=== PATIENT | male | born 1960 | race Caucasian/White ===

== ENCOUNTER → 2016-10-22 | Outpatient (CLI) | payer BC ==
[~2016-10-22] MED LIST: CALC-440 PO; CALC0.5C PO; CHOLTAB3 PO; LEVO125T5 PO; MAGN400T6 PO; ONDA4TAB46 SL; VERA120C2 PO; VRPSR240 PO
--- NOTE | 2016-10-22 12:52 | DIAGNOSTIC IMAGING REPORT ---
CHEST 2 VIEWS ROUTINE CLINICAL HISTORY: Cough. Chronic kidney disease. COMPARISON STUDY: Chest radiograph February 25, 2016. FINDINGS: Lung volumes are normal. There is no pneumothorax or pleural effusion. Pulmonary vascularity is normal. No consolidation to suggest pneumonia is identified. Cardiac size is within normal limits. Mild patient rotation is noted. The appearance of the chest is unchanged. IMPRESSION: No acute cardiopulmonary findings. Electronically signed by: Siva Sotelo M.D. 10/22/2016 12:51 PM Dictated Date/Time: 10/22/2016 12:50 PM
== END | disposition home or self-care (01) ==
LOC: C.RADBC 12:21
PROVIDERS: ATTEND Physician Assistant Medical
DX: N18.3 Chronic kidney disease, stage 3 (moderate) (principal); R05 Cough

== ENCOUNTER 2020-08-21 06:30 | Observation (INO) ==
--- NOTE | 2020-08-15 09:33 | PAT Medication Instructions ---
Medication Instructions Date of Service August 15, 2020 Home Medications Medication Instructions Recorded sumatriptan succinate 50 mg tablet 50 mg PO .COMPLEX PRN #18 tab 08/18/19 hydrocodone 5 mg-acetaminophen 325 1 tab PO Q6H PRN #10 tab 08/21/19 mg tablet calcium carb,cit ER 600 mg-vit D3 2 tab PO QAM #180 tab 10/23/19 12.5 mcg (500 unit) tablet,ext.rel calcium citrate 315 mg See Rx Instructions PO QPM #90 tab 10/23/19 calcium-vitamin D3 6.25 mcg (250 unit) tablet calcitriol 0.25 mcg capsule See Rx Instructions PO .COMPLEX 06/17/20 #220 cap sumatriptan succinate 50 mg tablet 50 mg PO .COMPLEX PRN hydrocodone 5 mg-acetaminophen 325 mg tablet 1 tab PO Q6H PRN calcium carb,cit ER 600 mg-vit D3 12.5 mcg (500 unit) tablet,ext.rel 2 tab PO QAM calcium citrate 315 mg calcium-vitamin D3 6.25 mcg (250 unit) tablet See Rx I nstructions PO QPM calcitriol 0.25 mcg capsule See Rx Instructions PO .COMPLEX amlodipine 10 mg PO QAM doxazosin 1 mg PO QPM hydroxyzine HCl 25 mg PO QID PRN levothyroxine 125 mcg PO QAM multivitamin 1 tab PO QAM DO NOT take the morning of surgery calcium carb,cit ER 600 mg-vit D3 12.5 mcg (500 unit) tablet,ext.rel 2 tab PO QAM calcitriol 0.25 mcg capsule See Rx Instructions PO .COMPLEX hydroxyzine HCl 25 mg PO QID PRN multivitamin 1 tab PO QAM Take morning of surgery With a small sip of water, OTHERWISE NOTHING TO EAT OR DRINK AFTER MIDNIGHT: sumatriptan succinate 50 mg tablet 50 mg PO .COMPLEX PRN (if needed) hydrocodone 5 mg-acetaminophen 325 mg tablet 1 tab PO Q6H PRN (okay to take up to 4 hours prior to surgery if needed) amlodipine 10 mg PO QAM levothyroxine 125 mcg PO QAM Take evening before surgery sumatriptan succinate 50 mg tablet 50 mg PO .COMPLEX PRN (if needed) hydrocodone 5 mg-acetaminophen 325 mg tablet 1 tab PO Q6H PRN (if needed) calcium citrate 315 mg calcium-vitamin D3 6.25 mcg (250 unit) tablet See Rx Instructions PO QPM doxazosin 1 mg PO QPM hydroxyzine HCl 25 mg PO QID PRN (if needed) Other Notes If you have any questions please call us at [phone] or [phone] or [phone] or [phone]
--- NOTE | 2020-08-16 12:24 | Anesthesiology Consultation ---
Date of Service August 16, 2020 Assessment & Plan (1) Encounter for pre-operative examination: COVID Status: As of 08/16 assessment, patient denies travel to endemic area, known exposure/sick contacts, or symptoms of COVID19. Patient instructed that they and their household members must follow strict social distancing guidelines, wear a mask in public and avoid travel/events/gatherings for 14 days prior to surgery. Preoperative COVID19 testing completed 08/15. Patient made aware to self-isolate as much as possible between COVID testing and surgery. PCP Clearance 08/14/20: "No major issues at this time. Physical examination was unremarkable. Patient to have routine preoperative testing done on 08/16/2020. Scheduled to have COVID screen done. Based on physical examination the patient is within acceptable medical risk for his procedure schedule on 08/21/2020." Chart Review Chart Review: Acceptable Risk for Surgery and Patient seen in Pre Admission Testing Teaching & Discussion Instructed NPO after midnight before surgery, except medications with 15 cc of water. Medication instructions provided according to the PAT guidelines. History Surgery Operation Date: 08/21/20 09:05 Proposed Procedures p Right Total Knee Arthroplasty - Curtis Watkins MD Height/Weight Height: 5 ft 11 in Weight: 92.986 kg Allergies Allergy/AdvReac Type Severity Reaction Status Date / Time naproxen AdvReac Mild GI UPSET Verified 08/14/20 14:00 NSAIDS (Non-Steroidal AdvReac CONTRAINDIC Verified 08/14/20 14:00 Anti-Inflamma ATED Medications Home Medications Medication Instructions Recorded Confirmed Last Taken sumatriptan succinate 50 mg tablet 50 mg PO .COMPLEX PRN #18 tab 08/18/19 08/14/20 Unknown hydrocodone 5 mg-acetaminophen 325 1 tab PO Q6H PRN #10 tab 08/21/19 08/14/20 Unknown mg tablet calcium carb,cit ER 600 mg-vit D3 2 tab PO QAM #180 tab 10/23/19 08/14/20 Unknown 12.5 mcg (500 unit) tablet,ext.rel calcium citrate 315 mg See Rx Instructions PO QPM #90 tab 10/23/19 08/14/20 Unknown calcium-vitamin D3 6.25 mcg (250 unit) tablet calcitriol 0.25 mcg capsule See Rx Instructions PO .COMPLEX 06/17/20 08/14/20 Unknown #220 cap amlodipine 10 mg PO QAM 08/14/20 08/14/20 Unknown doxazosin 1 mg PO QPM 08/14/20 08/14/20 Unknown hydroxyzine HCl 25 mg PO QID PRN 08/14/20 08/14/20 Unknown levothyroxine 125 mcg PO QAM 08/14/20 08/14/20 Unknown multivitamin 1 tab PO QAM 08/14/20 08/14/20 Unknown Past Medical History Medical History Acute kidney injury 2013, r/t medication, Dr. Caban Anxiety Cancer medullary thyroid cancer Chronic kidney disease, stage III (moderate) History of radiation therapy Hypertension Hypothyroidism Migraine Osteoarthritis Exercise / Class Metabolic Activity II 4-5 Yardwork/Stairs/Walk up hill Past Family History Family History Father Cancer Prostate cancer Stroke syndrome Mother Hypertension Brother Hypertension Denies family history of Ovarian cancer Myocardial infarction Breast cancer Colorectal cancer Past Surgical History Surgical History History of arthroscopy bilateral knee scopes History of colonoscopy History of detached retina repair multiple surgeries bilaterally History of esophagogastroduodenoscopy (EGD) History of tooth extraction S/P knee surgery S/P parathyroidectomy S/P thyroidectomy S/P wisdom tooth extraction Past Anesthesia History No Hx of Anesthesia Complications and No Family Hx of Anesthesia Complications History of PONV No Hx of PONV and No Hx of Motion Sickness Social History Smoking Status: Never smoker Do You Dip or Chew Tobacco: No Hx Alcohol Use: Yes Alcohol type: beer alcohol intake frequency: a few times a week Hx Substance Use: No substance use type: does not use Review of Systems Pt denies any recent chest pain, shortness of breath, palpitations, cough, fever, URI, or uncontrolled acid reflux. Physical Exam Vital Signs BP: 147/94 (pt is visibly anxious) P: 71bpm SPO2: 97% RA T: 97.9 F R: 16 ENMT Mouth: no dental restorations and no loose teeth Thyromental Distance: > or= 3.5 Finger Breadths Mallampati Class: I Neck + facial hair (medium length oshea); neck extension not limited Respiratory normal respiratory effort, lungs clear to auscultation Testing Laboratory Results 08/16/20 12:38 08/16/20 12:38 PT 10.2 Seconds (9.0-12.0) 08/16/20 12:38 INR 1.0 (0.9-1.1) 08/16/20 12:38 APTT 26.2 Seconds (21.0-31.0) 08/16/20 12:38 Urine Color Yellow 08/16/20 12:38 Urine Appearance Clear (Clear) 08/16/20 12:38 Urine pH 6.5 (4.5-7.5) 08/16/20 12:38 Ur Specific [place] 1.015 (1.000-1.030) 08/16/20 12:38 Urine Protein Trace (Negative) H 08/16/20 12:38 Urine Glucose (UA) Negative (Negative) 08/16/20 12:38 Urine Ketones Negative (Negative) 08/16/20 12:38 Urine Nitrite Negative (Negative) 08/16/20 12:38 Ur Leukocyte Esterase Negative (Negative) 08/16/20 12:38 Urine WBC (Auto) 1-5 /hpf (0-5) 08/16/20 12:38 Urine RBC (Auto) 0-4 /hpf (0-4) 08/16/20 12:38 U Hyaline Cast (Auto) 1-5 /lpf (0-5) 08/16/20 12:38 U Epithel Cells (Auto) 0-5 /lpf (0-5) 08/16/20 12:38 Urine Bacteria (Auto) Negative (Negative) 08/16/20 12:38 Blood Type A Positive 08/16/20 12:38 Antibody Screen NEGATIVE 08/16/20 12:38 Creatinine c/w known stage III CKD. Electrocardiogram Date: 08/16/20 Findings: + NSR @ (72bpm) and + RBBB RBBB is new compared to 2015 EKG. Chest X-Ray Date: 08/16/20 Findings: + NAD
[2020-08-16 13:17] LABS: Basophils # (auto) 0.04 K/uL (0-0.2); Basophils % (auto) 0.5 %; Eosinophils # (auto) 0.16 K/uL (0-0.5); Hematocrit (blood only) 47.8 % (42-52); Hemoglobin 16.5 g/dL (14.0-18.0); Immature Granulocytes # (auto) 0.01 K/uL (0.00-0.02); Immature Granulocytes % (auto) 0.1 %; Lymphocytes % (auto) 15.9 %; Mean Corpuscular Hgb Conc 34.5 g/dL (32-36); Mean Corpuscular Volume 86.9 fL (80-100); Mean Platelet Volume 9.4 fL (7.4-10.4); Monocytes % (auto) 9.8 %; Neutrophils # (auto) 5.85 K/uL (1.4-6.5); Neutrophils % (auto) 71.7 %; Platelet Count 264 K/uL (130-400); RDW Coefficient of Variation 13.4 % (11.5-14.5); RDW Standard Deviation 42.8 fL (36.4-46.3); White Blood Count 8.16 K/uL (4.8-10.8)
--- NOTE | 2020-08-16 13:20 | XRay Report ---
XR chest Pre-admission PA/Lat HISTORY: 60 years-old Male pat preoperative exam. No acute chest complaints COMPARISON: Chest radiographs 10/22/2016 TECHNIQUE: PA and lateral views of the chest FINDINGS: Cardiomediastinal and hilar silhouettes are within normal limits. No pneumothorax, pleural effusion, airspace consolidation or overt pulmonary edema. Degenerative changes of the shoulders and spine. IMPRESSION: No acute process. ACT 112: Negative or not required by law. The above report was generated using voice recognition software. It may contain grammatical, syntax o r spelling errors. Electronically signed by: Vin Anand M.D. 08/16/2020 1:18 PM
[2020-08-16 13:22] LABS: Appearance Urine Clear (Clear); Bacteria Urine Automated Negative (Negative); Bilirubin Urine Negative (Negative); Blood Urine Negative (Negative); Color Urine Yellow; Epithelial Cell Urine Auto 0-5 /lpf (0-5); Glucose Urine UA Negative (Negative); Ketones Urine Negative (Negative); Leukocyte Esterase Urine Negative (Negative); Nitrite Urine Negative (Negative); Protein Urine Trace (Negative); RBC Urine Automated 0-4 /hpf (0-4); Specific Gravity Urine 1.015 (1.000-1.030); Urobilinogen Urine Negative (Negative); pH Urine 6.5 (4.5-7.5)
[2020-08-16 13:51] LABS: Partial Thromboplastin Time 26.2 Seconds (21.0-31.0); Prothrombin Time 10.2 Seconds (9.0-12.0)
[2020-08-16 14:39] LABS: BUN Creatinine Ratio 14.7 (10-20); Calcium 8.9 mg/dl (8.5-10.1); Creatinine Clr Calc Pharmacy 54.5 ml/min; Est GFR (Non-African American) 43.2; Potassium 3.6 mmol/L (3.5-5.1)
--- NOTE | 2020-08-16 16:07 | Electrocardiogram Report ---
Test Reason : Blood Pressure : / mmHG Vent. Rate : 072 BPM Atrial Rate : 072 BPM P-R Int : 144 ms QRS Dur : 160 ms QT Int : 454 ms P-R-T Axes : 074 078 062 degrees QTc Int : 497 ms Normal sinus rhythm Right bundle branch block Abnormal ECG When compared with ECG of 18-DEC-2014 07:28, Right bundle branch block is now Present Confirmed by Ben Varela ([id number]) on 08/16/2020 4:06:43 PM Referred By: Curtis Watkins Confirmed By:Ed Varela
--- NOTE | 2020-08-19 07:38 | History & Physical Report ---
Date of Service August 19, 2020 Assessment & Plan (1) Right knee DJD: Postoperative prescriptions for Percocet and Coumadin will be provided at discharge from the hospital. Anticipate discharge to home with home health services. Preoperative lab work, EKG, and chest x-ray were ordered today through PAT. He has already seen his PCP for medical clearance. Prescription was provided for a rolling walker. The patient has already done his COVID-19 nasal swab. He is currently asymptomatic of any COVID-19 symptoms. He is aware of the COVID-19 risks associated with surgery. PDMP was checked today, and there are no concerning findings. Last [place] fill was 1 year ago. History of Present Illness Chief Complaint: Right knee pain Primary Care Provider: Mark Melton, This 60-year-old male presents today for right knee pain that he has had for approximately 5 years. He is scheduled to undergo a right knee total knee arthroplasty on 08/21/2020. Pain has become worse with time. He did try viscosupplementation injections, corticosteroid injections, oral pain medication, and activity modification without improvement. He is unable to take NSAIDs due to renal insufficiency. Pain is worse with weightbearing. It is affecting his ADLs. He denies any numbness or tingling, occasional knee effusions, frequent night pain. Preoperative imaging has been obtained. He elects to proceed with surgical intervention in hopes of improving his function and pain control. Allergies Allergy/AdvReac Type Severity Reaction Status Date / Time naproxen AdvReac Mild GI UPSET Verified 08/14/20 14:00 NSAIDS (Non-Steroidal AdvReac CONTRAINDIC Verified 08/14/20 14:00 Anti-Inflamma ATED Home Medications Medication Instructions Recorded Confirmed Type sumatriptan succinate 50 mg tablet 50 mg PO .COMPLEX PRN #18 tab 08/18/19 08/14/20 Rx hydrocodone 5 mg-acetaminophen 325 1 tab PO Q6H PRN #10 tab 08/21/19 08/14/20 Rx mg tablet calcium carb,cit ER 600 mg-vit D3 2 tab PO QAM #180 tab 10/23/19 08/14/20 Rx 12.5 mcg (500 unit) tablet,ext.rel calcium citrate 315 mg See Rx Instructions PO QPM #90 tab 10/23/19 08/14/20 Rx calcium-vitamin D3 6.25 mcg (250 unit) tablet calcitriol 0.25 mcg capsule See Rx Instructions PO .COMPLEX 06/17/20 08/14/20 Rx #220 cap amlodipine 10 mg PO QAM 08/14/20 08/14/20 History doxazosin 1 mg PO QPM 08/14/20 08/14/20 History hydroxyzine HCl 25 mg PO QID PRN 08/14/20 08/14/20 History levothyroxine 125 mcg PO QAM 08/14/20 08/14/20 History multivitamin 1 tab PO QAM 08/14/20 08/14/20 History Past Med/Surg History Medical History (Updated 08/19/20 @ 07:37 by Melecio Whitley PA-C) Acute kidney injury 2013, r/t medication, Dr. Caban Anxiety Cancer medullary thyroid cancer Chronic kidney disease, stage III (moderate) History of radiation therapy Hypertension Hypothyroidism Migraine Osteoarthritis Surgical History History of arthroscopy bilateral knee scopes History of colonoscopy History of detached retina repair multiple surgeries bilaterally History of esophagogastroduodenoscopy (EGD) History of tooth extraction S/P knee surgery S/P parathyroidectomy S/P thyroidectomy S/P wisdom tooth extraction Family History Father Cancer Prostate cancer Stroke syndrome Mother Hypertension Brother Hypertension Denies family history of Ovarian cancer Myocardial infarction Breast cancer Colorectal cancer Social History Smoking Status: Never smoker Second Hand Exposure: No; Hx Alcohol Use: Yes Alcohol type: beer Hx Substance Use: No Preferred Language: Micronesian Visual Impairment: No Limitations Hearing Ability: Normal Beef Breaker Required: No Beliefs That Will Affect Care: None marital status: Current Living Situation: Family current occupational status: employed current occupation: perfessor [employer] Feels Safe at Home: Yes Childhood Exposure to Second-Hand Smoke: Yes Dental Care, Regularly: Yes Physical Activity Frequency: 3-4 Times per Week Seatbelt Use: always Sunscreen Use: No Assistive Devices: None Review of Systems Review of Systems: All systems reviewed & are unremarkable except as noted in HPI & below A total of 10 systems were reviewed. Physical Exam Physical Exam: Vitals: Height 180.5 cm, weight 92.9 kilograms, BMI 28.5, temp erature 36.6, BP 140/82, pulse 99, O2 sat 98% on room air. General: Well-developed, well-nourished middle-aged white male in no acute distress. Sitting in a chair. Alert and oriented. Skin: Warm and dry with good turgor. No rashes or lesions. No ecchymosis or erythema. No intraarticular effusion. HEENT: Normocephalic, atraumatic. Eyes: PERRLA, EOMI. Nares patent bilaterally without turbinate enlargement. Oropharynx exam deferred due to COVID precautions. Heart: RRR, no MGR. Lungs: Clear to auscultation bilaterally, no crackles, rhonchi or wheezing, good air movement. Abdomen: Bowel sounds present x4, soft, nontender. No organomegaly. No masses. Musculoskeletal: Right knee evaluation reveals no intraarticular effusion. He has nearly full terminal extension. Lacks just a few degrees of lag. Flexion to just shy of 100 degrees. Strength is 5/5 with good quad tone. Stable collateral ligaments. He has focal discomfort with palpation over the medial joint line. No lateral joint line discomfort with palpation. Mild crepitation palpable with motion. No peripatellar discomfort. No defect in the patellar tendon or quadriceps tendon. Stable MCL and LCL stressing. Ambulates with a very mildly antalgic gait. Strength is 5/5 for resisted plantarflexion and dorsiflexion of the ankle. Neurologic: Gross sensation is intact across the right leg by soft touch. Peripheral pulses are 2+. Results & Data Results & Data ([facility]) Diagnostic Findings Radiographic imaging previously obtained shows medial joint space loss with periarticular osteophytes.
--- NOTE | 2020-08-21 06:22 | History & Physical Bridge Note ---
Date of Service August 21, 2020 History & Physical Bridge Note I have examined the patient, reviewed the History & Physical and in the interval since the performance of the History & Physical I have noted the following changes of clinical significance:consent obtained/site verified/covid screen negative. no changes noted
[~2020-08-21 06:30] MED LIST changes: -CALC-440 PO; -CALC0.5C PO; -CHOLTAB3 PO; -LEVO125T5 PO; +LR 500ML BOLUS, THEN 15ML/HR IV SCH; +LR 60ML/HR IV SCH; -MAGN400T6 PO; -ONDA4TAB46 SL; +ROPIVACAINE 0.5% HCL/PF 150 MG, BUPIVACAINE 0.75% MPF 20 ML, EPINEPHrine 0.15 MG, dexAM... INFIL SCH; +TRANEXAMIC ACID 1,000 MG **IV Pre-op IV SCH; -VERA120C2 PO; -VRPSR240 PO; +ceFAZolin 2000MG 2,000 MG/15 ML SYR IV SCH
[2020-08-21] MEDS ORDERED: ROPIVACAINE 0.5% 5 MG/ML 30 ML VIAL ONE (06:35)
[2020-08-21] MEDS ORDERED: BUPIVACAINE 0.5 % 5 MG/1 ML PF 10ML VIAL ONE (06:35)
[2020-08-21] MEDS ORDERED: MIDAZOLAM HCL 1 MG/ML 2ML VIAL ONE ×2 (07:35→07:36)
[2020-08-21] MEDS ORDERED: ONDANSETRON INJ 2 MG/ML 2 ML VIAL IV PRN ×2 (08:18→13:03)
[2020-08-21] MEDS ORDERED: ATROPINE SULFATE 0.1 MG/ML 10ML SYR IV PRN (08:18)
[2020-08-21] MEDS ORDERED: HYDROmorphone INJ 1 MG/ML SYRINGE IV PRN (08:18)
[2020-08-21] MEDS ORDERED: ePHEDrine sulfate 50 MG/ML AMP IV PRN (08:18)
[2020-08-21] MEDS ORDERED: ORTHO JOINT ANESTHETIC ONE (08:48)
[2020-08-21] MEDS ORDERED: PROPOFOL IV EMULSION 10 MG/ML 20 ML VIAL IV ONE ×2 (08:54→10:00)
[2020-08-21] MEDS ORDERED: LIDOCAINE HCL 2% 2 ML VIAL/AMP(20MG/ML) INFIL ONE (08:54)
--- NOTE | 2020-08-21 09:09 | Discharge Summary (DS) ---
DATE OF DISCHARGE: 08/22/2020. CHIEF COMPLAINT: Right knee pain. HISTORY OF PRESENT ILLNESS: The patient underwent elective right total knee replacement. At this point in time, patient with potential for discharge if he does well overnight. A 60-year-old male with intractable knee pain, has been treated for over 5 years. Continues to have significant discomfort. X-rays reveal progressive varus medial joint space narrowing. At this point in time, he is frustrated and feels like he cannot do his activities and wants to proceed with surgical treatment. He understood the risks and consequences. Medication reconciliation list is extensive, please see list. PAST MEDICAL HISTORY: Remarkable for acute kidney injury, anxiety, cancer, medullary thyroid cancer, chronic kidney disease stage III, history of radiation therapy, hypertension, hypothyroidism, migraine, osteoarthritis. PAST SURGICAL HISTORY: Remarkable for arthroscopy, colonoscopies, retinal surgery, EGDs, tooth extraction, multiple knee surgeries in the past. FAMILY HISTORY: Remarkable for cancer, prostate, strokes in the father. Hypertension in mother. Brother hypertension. Denies family history of ovarian, myocardial infarction, breast cancer, colorectal cancer. SOCIAL HISTORY: Reveals that he does not smoke. Social alcohol only. Lives with his family. He is a professor at [employer]. REVIEW OF SYSTEMS: Reveals no chest pain, shortness of breath, fever, chills, nausea, vomiting or headache. ASSESSMENT: Status post right total knee replacement. Hospital course continues if he continues to do well will be discharged on 08/23/2019. DVT prophylaxis per protocol.
[2020-08-21] MEDS ORDERED: fentaNYL citrate 100 MCG/2 ML VIAL ONE (09:22)
--- NOTE | 2020-08-21 10:27 | Post Operative Brief Note ---
Immediate Post Op Note v1 Date of Surgery August 21, 2020 Pre & Post Diagnosis Operation Date: 08/21/20 08:50 Pre-Op Diagnosis: Right Knee Degenerative Joint Disease Post-Op Diagnosis: Right Knee Degenerative Joint Disease I identified the patient and participated in the time-out.: Yes Procedure Operation Date: 08/21/20 08:50 Actual Procedures p Right Total Knee Arthroplasty(Right) - Curtis Watkins MD Surgeon Curtis Watkins MD Banana Room Cutter Anastasiia/Gutierrez Estimated Blood Loss 75 Findings Consistent with Post-Op Diagnosis
--- NOTE | 2020-08-21 10:41 | Operative Report ---
Post Operative Report Pre & Post Diagnosis Operation Date: 08/21/20 08:50 Pre-Op Diagnosis: Right Knee Degenerative Joint Disease Post-Op Diagnosis: Right Knee Degenerative Joint Disease I identified the patient and participated in the time-out.: Yes Procedure Operation Date: 08/21/20 08:50 Actual Procedures p Right Total Knee Arthroplasty(Right) - Curtis Watkins MD Surgeon Curtis Watkins MD Set Painter Anastasiia/Gutierrez Estimated Blood Loss 75 Findings Consistent with Post-Op Diagnosis Specimens bone cuts Anesthesia Type Spinal MAC Complications none Disposition Accompanied Patient To Recovery: Yes Disposition: Recovery Room Description of Procedure As per Dr. Watkins's note, I assisted in prepping and draping, instruments handling, certain parts of the procedure and wound closure. I attest to the content of the Intraoperative Record and any orders documented therein. Any exceptions are noted below.
--- NOTE | 2020-08-21 10:43 | Operative Report ---
Post Operative Report Pre & Post Diagnosis Operation Date: 08/21/20 08:50 Pre-Op Diagnosis: Right Knee Degenerative Joint Disease Post-Op Diagnosis: Right Knee Degenerative Joint Disease I identified the patient and participated in the time-out.: Yes Procedure Operation Date: 08/21/20 08:50 Actual Procedures p Right Total Knee Arthroplasty(Right) - Curtis Watkins MD Surgeon JOHN Watkins MD Color Blender Anastasiia/Gutierrez SMITH Estimated Blood Loss 75 Findings Consistent with Post-Op Diagnosis Specimens see operative report Drains none Complications none Disposition Accompanied Patient To Recovery: Yes Disposition: Recovery Room Indications This 60-year-old male presented to the office with complaints of persisting right knee pain. He had tried conservative care measures without improvement. He elected to proceed with surgical intervention after being educated about potential risks and outcomes. Preoperative imaging was obtained. Description of Procedure Patient was administered a spinal anesthetic and then taken to the operating room where he was given sedation. He was prepped and draped in the usual sterile fashion. Please see Dr. Watkins's operative report for specifics of the procedure. I was present for the entire case from initial patient positioning through final wound closure. Assistance was provided in tissue retraction, hemostasis, trial implant placement, final implant placement, and final wound closure. Patient was taken to the recovery room in satisfactory condition. I attest to the content of the Intraoperative Record and any orders documented therein. Any exceptions are noted below.
--- NOTE | 2020-08-21 10:49 | XRay Report ---
RIGHT KNEE 2 VIEWS History: Right total knee arthroplasty. Degenerative arthritis. Postop. FINDINGS: The patient is status post a right total knee arthroplasty. The hardware is intact. No frac ture or dislocation. Skin stephon are in place. IMPRESSION: Right total knee arthroplasty. No evidence for hardware complication. ACT 112: Negative or not required by law. Electronically signed by: Renzo Marcos M.D. 08/21/2020 10:48 AM
--- NOTE | 2020-08-21 11:49 | Operative Report (OR) ---
DATE OF OPERATION: 08/21/2020 SURGEON: Curtis Watkins MD. VP: Dr. Laurent. SECOND VP: Melecio Whitley PA-C. PREOPERATIVE DIAGNOSES: Osteoarthritis with varus deformity, right knee. POSTOPERATIVE DIAGNOSES: Osteoarthritis with varus deformity, right knee. OPERATION PERFORMED: Cemented right total knee replacement. SUMMARY OF IMPLANTS: Size 3 right femur, posterior cruciate substituting size 3 mobile bearing tray, size 3 x 10 mm insert posterior cruciate substituting oval domed 3 pegged patella, 41, 2 bags of Palacos G cement. Bone pathology pending. ESTIMATED BLOOD LOSS: 75 mL. CRYSTALLOID: Per anesthesia. DVT prophylaxis per protocol. PERIOPERATIVE SITUATION: Medically cleared male with intractable knee pain. X-rays, physical exam are consistent with varus deformity, recurrent synovitis and x-rays revealing degenerative disease. DESCRIPTION OF PROCEDURE: The patient was appropriately identified, site verified, consent verified. Antibiotics confirmed as being given. Right lower extremity was prepped and draped in usual routine fashion. Tourniquet inflated to 300 mmHg after exsanguination of limb with a rubber Esmarch bandage for a total of 53 minutes. Midline exposure utilized. Parapatellar arthrotomy performed. Synovectomy completed. The knee was very wet. Once the patella was everted and knee flexed, the entire medial two-thirds of the tibia posteriorly and the condyle of the femur posteriorly were completely raw bone. There was large flaps of articular cartilage floating around the knee. The ACL was partially torn. The lateral compartment had grade 1 changes of patellofemoral joint, had grade 2 changes. Once the menisci were resected, a synovectomy completed. The distal femur was then resected 12 mm, proximal tibia 4 mm, the extension gap was excellent. The femur was sized between a 4 and a 3, was measured 4 cut 3. There was no notching. The flexion gap was then checked. It was excellent. The box cut was then made and the size 3 fit well. The tibia was then broached and reamed to a size 3 with a 10 mm spacer, the knee was stable in both extension, mid range flexion and full flexion. The patella tracked well. The patella was everted resecting about 8 mm, leaving about 16. The seating holes were then made for 41 patella and that tracked well. The knee was then injected with the Orthomix throughout. The implants were removed. The wound was irrigated with Betadine and Pulsavac and then cemented the components into position, tibia, femur and patella in that order. At 12 minutes, the tourniquet deflated. Minor bleeding points controlled with electrocautery. At 14 minutes, knee flexed. There was no major bleeding. There was no cement removal required. The wound was irrigated and then the permanent liner seated, knee reduced and closed at 30-40 degrees of flexion with #2 Vicryl, 2-0 Vicryl and stainless steel clips. Appropriate dressing applied. The patient transferred to recovery room in satisfactory condition having tolerated the procedure well. I attest to the content of the Intraoperative Record and any orders documented therein. Any exception s are noted below.
--- NOTE | 2020-08-21 11:49 | Anesthesiology Progress Note ---
Date of Service August 21, 2020 Anesthesia Post Procedure Vital Signs Vital Signs: Temp Pulse Pulse Resp BP BP Pulse Ox 08/21/20 11:45 69 15 136/88 98 08/21/20 11:30 76 17 131/82 97 08/21/20 11:15 36.4 C L 65 16 115/73 98 08/21/20 11:05 62 16 107/69 97 08/21/20 10:55 75 20 102/80 96 08/21/20 10:45 83 20 118/73 97 08/21/20 10:37 36.8 C 100 H 19 110/72 97 08/21/20 07:11 36.8 C 75 18 146/93 H 98 Pain Intensity Right Knee: Pain Intensity: 0 Transfer of Care Handoff Completed per policy Notes Mental Status: alert / awake / arousable Patient Amnestic to Procedure: Yes Nausea / Vomiting: adequately controlled Pain: adequately controlled Airway Patency, RR, SpO2: stable & adequate BP & HR: stable & adequate Hydration State: stable & adequate Anesthetic Complications: no major complications apparent
--- NOTE | 2020-08-21 11:53 | Progress Notes ---
DATE: 08/21/2020 SUBJECTIVE: Postop check status post right total knee replacement. The patient is awake and alert. Denies chest pain, shortness of breath, fever, chills, nausea, vomiting or headache. OBJECTIVE: Vital signs are stable. He is afebrile. Neurovascular check is limited by spinal, but he is starting to roll his legs. Wound dressing clean, dry and intact. Postop x-rays look excellent. ASSESSMENT: Doing well status post right total knee replacement. Continue with care pathway. Home tomorrow if he does well overnight.
[2020-08-21] MEDS ORDERED: diphenhydrAMINE 50 MG/ML VIAL IV PRN (13:03)
[2020-08-21] MEDS ORDERED: NALOXONE HCL 0.4 MG/1 ML VIAL/CARP IV PRN (13:03)
[2020-08-21] MEDS ORDERED: SODIUM CHLORIDE 0.9% 1000ML 1,000 ML IV SCH (13:03)
[2020-08-21] MEDS ORDERED: MAGNESIUM HYDROXIDE SUSP 30 ML UDC PO PRN (13:03)
[2020-08-21] MEDS ORDERED: TAMSULOSIN HCL 0.4 MG CAP PO PRN (13:03)
[2020-08-21] MEDS ORDERED: bisacodyL 10 MG SUPP PR PRN (13:03)
[2020-08-21] MEDS ORDERED: ALUMINUM/MAGNESIUM SUSP 30 ML UDC PO PRN (13:03)
[2020-08-21] MEDS ORDERED: METOCLOPRAMIDE HCL INJ 5 MG/ML 2 ML VIAL IV PRN (13:03)
[2020-08-21] MEDS ORDERED: hydrOXYzine HCl 25 MG TAB PO PRN (13:03)
[2020-08-21] MEDS: ACETAMINOPHEN 500 MG TAB PO SCH ×2 (13:28→21:47)
[2020-08-21] MEDS: oxyCODONE HCL IR 5 MG TAB (IMMEDIATE RELEASE) PO PRN ×3 (13:29→21:47)
[2020-08-21] MEDS ORDERED: SUMAtriptan succinate 25 MG TAB PO PRN (13:49)
[2020-08-21] MEDS: HYDROmorphone INJ 0.5 MG/0.5 ML SYR IV PRN ×2 (14:07→18:55)
[2020-08-21] MEDS ORDERED: WARFARIN SOD 5 MG TAB PO SCH (16:00)
[2020-08-21] MEDS ORDERED: TRANEXAMIC ACID / 0.7% NACL 1,000 MG/100 ML BAG IV SCH (16:49)
[2020-08-21] MEDS: ASCORBIC ACID 500 MG TAB PO SCH (17:34)
[2020-08-21] MEDS: FERROUS GLUCONATE 324 MG TAB PO SCH (17:34)
[2020-08-21] MEDS: ceFAZolin 2000MG 2,000 MG/15 ML SYR IV SCH (17:37)
[2020-08-21] MEDS: DOCUSATE SODIUM 100 MG CAP PO SCH (20:16)
[2020-08-21] MEDS ORDERED: DOXAZOSIN MESYLATE 1 MG TAB PO SCH (21:00)
[2020-08-21] MEDS ORDERED: SENNA 8.6 MG TAB PO SCH (21:00)
[2020-08-22] MEDS: oxyCODONE HCL IR 5 MG TAB (IMMEDIATE RELEASE) PO PRN ×3 (01:59→13:35)
[2020-08-22] MEDS: ceFAZolin 2000MG 2,000 MG/15 ML SYR IV SCH (01:59)
--- NOTE | 2020-08-22 06:12 | Progress Notes ---
DATE: 08/22/2020 SUBJECTIVE: Postop check status post right total knee replacement. The patient is doing well, has no problems. Denies chest pain, shortness of breath, fever, chills, nausea, vomiting, or headache. OBJECTIVE: Vital signs are stable. He is afebrile. Wound dressing clean, dry and intact. Femoral sciatic nerve functioning good. Can do a straight leg raise. Labs pending this morning. ASSESSMENT AND PLAN: Doing well. Discharge to home today after PT, OT.
[2020-08-22 06:16] LABS: Hematocrit (blood only) 39.8 % (42-52); Hemoglobin 14.2 g/dL (14.0-18.0); Mean Corpuscular Hemoglobin 30.5 pg (25-34); Mean Corpuscular Hgb Conc 35.7 g/dL (32-36); Mean Corpuscular Volume 85.6 fL (80-100); Mean Platelet Volume 9.1 fL (7.4-10.4); Platelet Count 231 K/uL (130-400); RDW Coefficient of Variation 13.5 % (11.5-14.5); RDW Standard Deviation 42.6 fL (36.4-46.3); Red Blood Count 4.65 M/uL (4.7-6.1); White Blood Count 14.86 K/uL (4.8-10.8)
[2020-08-22] MEDS ORDERED: LEVOTHYROXINE SODIUM 125 MCG TABLET PO SCH (06:30)
[2020-08-22] MEDS: ACETAMINOPHEN 500 MG TAB PO SCH ×2 (06:31→13:36)
[2020-08-22 06:36] LABS: INR 1.1 (0.9-1.1); Prothrombin Time 10.7 Seconds (9.0-12.0)
[2020-08-22 06:53] LABS: BUN Creatinine Ratio 13.1 (10-20); Calcium 6.6 mg/dl (8.5-10.1); Creatinine Clr Calc Pharmacy 57.3 ml/min; Est GFR (African American) 51.9; Est GFR (Non-African American) 44.8; Potassium 3.5 mmol/L (3.5-5.1)
[2020-08-22] MEDS ORDERED: dexAMETHasone 10 MG in SYRINGE 0 ML IV SCH (08:00)
[2020-08-22] MEDS ORDERED: MULTIVITAMIN TAB PO SCH (09:00)
[2020-08-22] MEDS ORDERED: CALCIUM CITRATE 950 MG TAB PO SCH (09:00)
[2020-08-22] MEDS ORDERED: amLODIPine BESYLATE 5 MG TAB PO SCH (09:00)
--- NOTE | 2020-08-22 09:44 | Orthopedic Progress Note ---
Date of Service August 22, 2020 Assessment & Plan (1) S/P total knee arthroplasty: Dressing was changed today by me. While changing his dressing, patient became more pale and stated he was very dizzy and more nauseated. Dressing change was completed and he was placed back in his bed. Patient stated he felt better when laying down. Pulse and BP remained within normal limits. Coumadin today per nomogram. Written discharge instructions were provided. Prescriptions for Percocet and Coumadin 2 mg were sent to his pharmacy. He will receive his Coumadin dose today prior to discharge. Dressings will remain in place until Wednesday, and then can be changed by home nursing staff as needed. He will obtain an INR draw on Wednesday through home health. Discontinue knee immobilizer use tomorrow after dinner. Follow-up in the office with me in 2 weeks for staple removal as scheduled. Admission and Anticipated Discharge Date Admission Date: August 21, 2020 Subjective Patient is seen in his room this morning. He was seated at bedside eating his breakfast. States he was significantly nauseated after receiving his pain medication this morning. Denies any chest pain or shortness of breath. No vomiting. He states he did fairly well over night. Did not sleep much. No other complaints. Review of Systems Review of Systems: Unchanged from yesterday. Physical Exam Physical Exam: General: Well-developed middle-age male in no acute distress. Sitting in his chair. Alert and oriented. Somewhat pale. States he is nauseated. Skin: Warm dry with good turgor. Postsurgical dressings are intact on the right knee. Upon removal, there is almost no drainage. Expected postoperative edema. No ecchymosis. No active bleeding. [place] are intact. Musculoskeletal: Patient has intact motor function of his ankle and toes. He is able to perform a week straight leg raise. He currently has nearly full terminal extension. Flexion to only around 45 degrees currently secondary to discomfort. Neurologic: Gross sensation is intact across the right leg by soft touch. Peripheral pulses are 2+. Results & Data ([facility]) Vital Signs (Past 12 Hours) Vital Signs Temp Pulse Resp BP BP Pulse Ox 08/22/20 07:43 36.7 C 65 16 136/85 98 08/22/20 03:39 36.8 C 76 14 132/77 97 08/21/20 23:28 36.7 C 76 14 134/75 96 Laboratory Results WBCs 14.86, hemoglobin 14.2, hematocrit 39.8, INR 1.1. Sodium 137, potassium 3.5, chloride 103, CO2 28, BUN 22, creatinine 1.65. These are all consistent with his norms. Calcium is low at 6.6.
[2020-08-22] MEDS ORDERED: WARFARIN SOD 5 MG TAB PO SCH (10:00)
[2020-08-22] MEDS: FERROUS GLUCONATE 324 MG TAB PO SCH (11:33)
[2020-08-22] MEDS: ASCORBIC ACID 500 MG TAB PO SCH (11:33)
[2020-08-22] MEDS: DOCUSATE SODIUM 100 MG CAP PO SCH (11:36)
[2020-08-23] MEDS ORDERED: ORTHO WARFARIN NOMOGRAM SCH (14:00)
== END 2020-08-22 15:23 | disposition home health service (06) ==
LOC: 3E 06:30 → ASU 06:30